=== PATIENT | male | born 1985 | race Hispanic/Latino ===

== ENCOUNTER 2020-11-25 07:59 | Inpatient (IN) | payer OTHER ==
[~2020-11-25] VITALS: Ht 177.8 cm; Wt 116.8 kg
[2020-11-25 09:18] LABS: BASOPHILS % (AUTO) 0.5 % (0.0-5.0); EOSINOPHILS % (AUTO) 4.1 % (0.0-8.0); HEMATOCRIT 42.1 % (42-54); LYMPHOCYTES % (AUTO) 30.6 % (21.0-51.0); MEAN CORPUSCULAR HEMOGLOBIN 29.4 pg (27.0-33.0); MEAN CORPUSCULAR HGB CONC 33.5 g/dL (32.0-36.0); MEAN CORPUSCULAR VOLUME 87.9 fL (79-99); NEUTROPHILS % (AUTO) 57.3 % (40.0-77.0); PLATELET COUNT (AUTO) 166 K/uL (130-400); RED BLOOD CELL COUNT(AUTO) 4.79 MIL/uL (4.50-6.20); RED CELL DISTRIBUTION WIDTH 11.9 % (11.0-15.5); WHITE BLOOD COUNT (AUTO) 6.2 K/uL (4.8-10.8)
[2020-11-25 09:30] LABS: POTASSIUM 3.8 mmol/L (3.5-5.1)
[2020-11-25 09:34] LABS: ALBUMIN 3.7 g/dL (3.5-5.0); BILIRUBIN,TOTAL 0.2 mg/dL (0.2-1.0); TOTAL PROTEIN, SERUM 7.7 g/dL (6.0-8.3)
[2020-11-25] MEDS ORDERED: LORAZEPAM 2 MG/ML 1 ML VIAL ONE (10:45)
[2020-11-25] MEDS ORDERED: COMPOUND IV MISC 1 EACH IVSOLN MISC PRN (16:45)
[2020-11-25] MEDS ORDERED: LORAZEPAM 2 MG/ML 1 ML VIAL IVP PRN (16:45)
[2020-11-25] MEDS ORDERED: LACTULOSE 20 GM/30 ML UDCUP PO PRN (17:15)
[2020-11-25] MEDS ORDERED: DiphenhydrAMINE HCL 50 MG/ML VIAL IV PRN (17:15)
[2020-11-25] MEDS ORDERED: MAG HYDROX/AL HYDROX/SIMETH ES 30 ML SUSP UDCUP PO PRN (17:15)
[2020-11-25] MEDS ORDERED: NITROGLYCERIN 0.4 MG SL TAB SL PRN (17:15)
[2020-11-25] MEDS ORDERED: DIPHENHYDRAMINE HCL 25 MG CAPSULE PO PRN (17:15)
[2020-11-25] MEDS ORDERED: ACETAMINOPHEN 325 MG TAB PO PRN ×2 (17:15)
[2020-11-25] MEDS ORDERED: ONDANSETRON HCL 4 MG/2 ML VIAL IV PRN (17:15)
[2020-11-25] MEDS ORDERED: GUAIFENESIN-DM 200/20 MG 10 ML PO PRN (17:15)
[2020-11-25] MEDS ORDERED: LEVETIRACETAM 500 MG TABLET PO ONE (20:53)
[2020-11-25] MEDS: LAMOTRIGINE 100 MG TABLET PO SCH (21:00)
[2020-11-25] MEDS: LEVETIRACETAM 500 MG TABLET PO SCH (21:00)
[2020-11-25] MEDS ORDERED: LEVETIRACETAM 1,500 MG in SODIUM CHLORIDE 0.9% 100 ML IV SCH (22:00)
[2020-11-26 04:35] VITALS: BP 114/71
[2020-11-26] MEDS ORDERED: LAMO25TA66 PO (05:09)
[2020-11-26] MEDS ORDERED: LEVE500T9 PO (05:09)
[2020-11-26] MEDS ORDERED: CLOB10TA3 PO (05:10)
[2020-11-26 06:09] LABS: BASOPHILS % (AUTO) 0.6 % (0.0-5.0); HEMATOCRIT 42.6 % (42-54); LYMPHOCYTES % (AUTO) 31.9 % (21.0-51.0); MEAN CORPUSCULAR HEMOGLOBIN 29.5 pg (27.0-33.0); MEAN CORPUSCULAR HGB CONC 32.9 g/dL (32.0-36.0); MEAN CORPUSCULAR VOLUME 89.7 fL (79-99); MONOCYTES % (AUTO) 7.9 % (3.0-13.0); NEUTROPHILS % (AUTO) 55.3 % (40.0-77.0); PLATELET COUNT (AUTO) 172 K/uL (130-400); RED BLOOD CELL COUNT(AUTO) 4.75 MIL/uL (4.50-6.20); RED CELL DISTRIBUTION WIDTH 11.9 % (11.0-15.5); WHITE BLOOD COUNT (AUTO) 7.8 K/uL (4.8-10.8)
[2020-11-26 06:32] LABS: HEMOGLOBIN A1C 5.9 % (4.0-6.0)
[2020-11-26 06:34] LABS: ALBUMIN 3.5 g/dL (3.5-5.0); BILIRUBIN,TOTAL 0.2 mg/dL (0.2-1.0); CREATININE 1.1 mg/dL (0.5-1.5); POTASSIUM 3.9 mmol/L (3.5-5.1); THYROID STIMULATING HORMONE 5.31 uIU/mL (0.36-3.74); TOTAL PROTEIN, SERUM 7.4 g/dL (6.0-8.3)
[2020-11-26 08:38] VITALS: BP 115/74
[2020-11-26] MEDS: LAMOTRIGINE 100 MG TABLET PO SCH ×2 (09:23→21:43)
[2020-11-26] MEDS: LEVETIRACETAM 500 MG TABLET PO SCH ×2 (09:24→21:42)
[2020-11-26] MEDS ORDERED: GADODIAMIDE 10 MMOL/20 ML VIAL IV ONE (11:06)
[2020-11-26 12:19] VITALS: BP 122/70
[2020-11-26 16:25] VITALS: BP 141/87
[2020-11-26] MEDS ORDERED: CLOBAZAM 10 MG PO SCH (21:00)
[2020-11-26 21:12] VITALS: BP 137/88
[2020-11-27 01:44] VITALS: BP 122/63
[2020-11-27 03:48] VITALS: BP 127/81
[2020-11-27 05:31] LABS: BASOPHILS % (AUTO) 0.6 % (0.0-5.0); EOSINOPHILS % (AUTO) 4.3 % (0.0-8.0); HEMATOCRIT 42.2 % (42-54); LYMPHOCYTES % (AUTO) 33.3 % (21.0-51.0); MEAN CORPUSCULAR HEMOGLOBIN 29.4 pg (27.0-33.0); MEAN CORPUSCULAR HGB CONC 33.2 g/dL (32.0-36.0); MEAN CORPUSCULAR VOLUME 88.7 fL (79-99); MONOCYTES % (AUTO) 7.9 % (3.0-13.0); NEUTROPHILS % (AUTO) 53.6 % (40.0-77.0); PLATELET COUNT (AUTO) 179 K/uL (130-400); RED BLOOD CELL COUNT(AUTO) 4.76 MIL/uL (4.50-6.20); RED CELL DISTRIBUTION WIDTH 11.8 % (11.0-15.5)
[2020-11-27 05:59] LABS: ALBUMIN 3.5 g/dL (3.5-5.0); BILIRUBIN,TOTAL 0.2 mg/dL (0.2-1.0); CREATININE 1.1 mg/dL (0.5-1.5); POTASSIUM 3.7 mmol/L (3.5-5.1); TOTAL PROTEIN, SERUM 7.6 g/dL (6.0-8.3)
[2020-11-27 07:45] VITALS: BP 129/76
[2020-11-27] MEDS: LAMOTRIGINE 100 MG TABLET PO SCH (09:11)
[2020-11-27] MEDS: LEVETIRACETAM 500 MG TABLET PO SCH (09:12)
[2020-11-27 11:21] VITALS: BP 131/84
[2020-11-27] MEDS ORDERED: LAMO25TA66 PO (12:57)
== END 2020-11-27 13:30 | disposition home or self-care (01) | DRG 101 ==
LOC: EDH 07:59 → OBSVTOIN 17:03 → EDHIP 17:03 → 3CH 11-26 04:26
PROVIDERS: ADMIT Family Medicine; ATTEND Family Medicine
DX: G40.909 Epilepsy, unspecified, not intractable, without status epilepticus (principal); F05 Delirium due to known physiological condition
CPT/HCPCS: 36415; 70450; 70553; 80053; 80177; 83036; 83735; 84443; 85025; A9579; G0378; J1953; J2060